=== PATIENT | female | born 1985 | race Hispanic/Latino ===

== ENCOUNTER 2019-12-22 17:12 | Emergency (ER) | payer BC ==
[2019-12-22 17:49] VITALS: BP 136/93; PULSE 74
[2019-12-22] MEDS ORDERED: Sodium Chloride 0.9% 10 ML Syringe FLUSH PRN (18:13)
--- NOTE | 2019-12-22 18:31 | EDM.PDOC ---
<RobertellaMomo urena Jackson - Last Filed: 12/22/19 18:17> ED HPI GENERAL MEDICAL PROBLEM - General Chief Complaint: Abdominal Pain Stated Complaint: ABDOMINAL PAIN Time Seen by Provider: 12/22/19 17:53 Source of Information: Reports: Patient History Limitations: Reports: No Limitations - History of Present Illness INITIAL COMMENTS - FREE TEXT/NARRATIVE: Belinda is a 34 YO female that presents to the ED experiencing left sided abdominal pain. Pain began last night and has been constant. Described as "like when I was giving ." Rated at a 10 out of 10. Nothing makes pain better but does worsen when standing for periods of time. Pain does not radiate to any other location. She has been having diarrhea today with her last normal formed stool being yesterday. Denies fever, chest pain, shortness of breath, nausea, vomiting, eating abnormal food or travel in the last three days, pain or changes in urination, pain during sex, vaginal discharge. She took pepto-bismol with no relief. Onset Date: 12/21/19 Duration: Day(s): (1 day history. ) Location: Reports: Abdomen Quality: Reports: Ache, Dull Improves with: Reports: None Worsens with: Reports: Other (Standing) Associated Symptoms: Reports: Loss of Appetite. Denies: Nausea/Vomiting Abdomen Pain Score (Numeric/FACES): 10 - Related Data Allergies Allergy/AdvReac Type Severity Reaction Status Date / Time No Known Allergies Allergy Verified 12/22/19 17:48 Home Meds: Home Meds . [No Known Home Meds] 12/22/19 [History] Past Medical History - Past Health History Medical/Surgical History: Denies Medical/Surgical History Genitourinary History: Reports: Other (See Below) Other Genitourinary History: Born with 1 kidney. LMP (Approximate): 1 Month - Infectious Disease History Infectious Disease History: Reports: None Social & Family History - Tobacco Use Smoking Status *Q: Never Smoker - Caffeine Use Caffeine Use: Reports: Coffee - Recreational Drug Use Recreational Drug Use: No - Sexual History Sexual History: Reports: Single Partner, Other (See Below) Other Sexual History Comment: IUD placed 3 years ago. Unknown what type. ED ROS GENERAL - Review of Systems Review Of Systems: See Below Constitutional: Reports: Decreased Appetite. Denies: Fever Respiratory: Denies: Shortness of Breath Cardiovascular: Denies: Chest Pain GI/Abdominal: Reports: Abdominal Pain, Diarrhea, Decreased Appetite. Denies: Constipation, Nausea, Vomiting : Reports: Other (Minimal vaginal spotting. ). Denies: Discharge, Dysuria, Flank Pain, Frequency, Hematuria, Urgency ED EXAM, GI/ABD - Physical Exam Exam: See Below Exam Limited By: No Limitations General Appearance: Alert Head: Atraumatic, Normocephalic Respiratory/Chest: No Respiratory Distress, Lungs Clear, Normal Breath Sounds Cardiovascular: Regular Rate, Rhythm, No Gallop, No Murmur, No Rub GI/Abdominal Exam: Normal Bowel Sounds, Soft, No Distention, Tender. No: Di stended, Guarding, Rigid Departure - Departure Disposition: Home, Self-Care 01 Clinical Impression: Abdominal pain Qualifiers: Abdominal location: periumbilical Qualified Code(s): R10.33 - Periumbilical pain - Discharge Information Instructions: Abdominal Pain, Adult, [id number] Referrals: PCP,None [Primary Care Provider] - Forms: ED Department Discharge Additional Instructions: You were evaluated in the ER today regarding your mid to left sided abdominal pain. Laboratory evaluation was done today, along with a CT, and demonstrates no acute abnormalities that would be causing this pain. Due to your reported history of loose stools, you could have a gastroenteritis causing issues. Recommend that you stick to a clear liquid diet for the next 24 to 48 hours, advance to bland as tolerated, please try to get a probiotic in your diet, as this might help form your stools up. You may take 500 mg Tylenol or 600 mg ibuprofen for further pain relief. Do not exceed 4000 mg Tylenol or 3200 mg ibuprofen in a 24-hour time span. If your pain does not seem to be getting much better, recommend you have your symptoms rechecked in a few days. Please return to the ER at any time if your symptoms change or worsen. Sepsis Event Note (ED) - Evaluation Sepsis Screening Result: No Definite Risk <No Lantigua - Last Filed: 12/22/19 22:10> Course - Vital Signs Last Recorded V/S: Last Vital Signs Temp 97 F 12/22/19 17:45 Pulse 74 12/22/19 17:45 Resp 16 12/22/19 17:45 BP 136/93 H 07/08/20 17:45 Pulse Ox 98 12/22/19 17:45 - Orders/Labs/Meds Orders: Active Orders 24 hr Category Date Time Status Peripheral IV Care [RC] . DIRECTED Care 12/22/19 18:13 Ordered UA W/MICROSCOPIC [URIN] Stat Lab 12/22/19 18:13 Ordered Sodium Chloride 0.9% [Saline Flush] Med 12/22/19 18:13 Ordered 10 ml FLUSH ASDIRECTED PRN Peripheral IV Insertion Adult [OM.PC] Stat Oth 12/22/19 18:13 Ordered Medication Orders Sodium Chloride (Saline Flush) 10 ml FLUSH ASDIRECTED PRN PRN Reason: Keep Vein Open Last Admin: 12/22/19 18:18 Dose: 10 ml Documented by: BEATA Labs: Laboratory Tests 12/22/19 12/22/19 12/22/19 Range/Units 18:25 18:25 18:25 WBC 16.08 H (3.98-10.04) K/mm3 RBC 5.00 (3.98-5.22) M/mm3 Hgb 15.2 (11.2-15.7) gm/dl Hct 45.1 H (34.1-44.9) % MCV 90.2 (79.4-94.8) fl MCH 30.4 (25.6-32.2) pg MCHC 33.7 (32.2-35.5) g/dl RDW Std Deviation 40.1 (36.4-46.3) fL Plt Count 301 (182-369) K/mm3 MPV 8.9 L (9.4-12.3) fl Neut % (Auto) 87.6 H (34.0-71.1) % Lymph % (Auto) 5.1 L (19.3-51.7) % [place] % (Auto) 6.6 (4.7-12.5) % Eos % (Auto) 0.4 L (0.7-5.8) Baso % (Auto) 0.1 (0.1-1.2) % Neut # (Auto) 14.08 H (1.56-6.13) K/mm3 Lymph # (Auto) 0.82 L (1.18-3.74) K/mm3 [place] # (Auto) 1.06 H (0.24-0.36) K/mm3 Eos # (Auto) 0.07 (0.04-0.36) K/mm3 Baso # (Auto) 0.02 (0.01-0.08) K/mm3 Manual Slide Review Normal smear Sodium 136 (136-145) mEq/L Potassium 4.1 (3.5-5.1) mEq/L Chloride 102 (98-107) mEq/L Carbon Dioxide 24 (21-32) mEq/L Anion Gap 14.1 (5-15) BUN 14 (7-18) mg/dL Creatinine 0.8 (0.55-1.02) mg/dL Est Cr Clr Drug Dosing 93.63 mL/min Estimated GFR (MDRD) > 60 (>60) mL/min BUN/Creatinine Ratio 17.5 (14-18) Glucose 100 (74-106) mg/dL Calcium 8.9 (8.5-10.1) mg/dL Total Bilirubin 0.6 (0.2-1.0) mg/dL AST 20 (15-37) U/L ALT 34 (14-59) U/L Alkaline Phosphatase 71 (46-116) U/L Total Protein 8.4 H (6.4-8.2) g/dl Albumin 3.9 (3.4-5.0) g/dl Globulin 4.5 gm/dL Albumin/Globulin Ratio 0.9 L (1-2) HCG, Qual Negative (NEGATIVE) Meds: Medications Generic Name Dose Route Start Last Admin Trade Name Freq PRN Reason Stop Dose Admin Sodium Chloride 10 ml 12/22/19 18:13 12/22/19 18:18 Saline Flush FLUSH 10 ml ASDIRECTED PRN Administration Keep Vein Open Discontinued Medications Generic Name Dose Route Start Last Admin Trade Name Freq PRN Reason Stop Dose Admin Diatrizoate Meglum/Diatrizoate Sod 90 ml 12/22/19 20:06 12/22/19 20:46 Gastrografin 37% PO 12/22/19 20:07 90 ml ONETIME ONE Administration Hydromorphone HCl 1 mg 12/22/19 18:36 12/22/19 18:53 Dilaudid IVPUSH 12/22/19 18:37 1 mg ONETIME ONE Administration Sodium Chloride 1,000 mls @ 999 mls/hr 12/22/19 18:36 12/22/19 18:52 Normal Saline IV 12/22/19 19:36 999 mls/hr ONETIME ONE Administration Iopamidol 100 ml 12/22/19 20:06 12/22/19 20:46 Isovue-300 (61%) IVPUSH 12/22/19 20:07 100 ml ONETIME ONE Administration Ondansetron HCl 4 mg 12/22/19 18:36 12/22/19 18:53 Zofran IVPUSH 12/22/19 18:37 4 mg ONETIME ONE Administration Sodium Chloride 10 ml 12/22/19 20:06 12/22/19 20:46 Saline Flush FLUSH 12/22/19 20:07 10 ml ONETIME ONE Administration - Re-Assessments/Exams Free Text/Narrative Re-Assessment/Exam: 12/22/19 18:41 I have read and reviewed the student's HPI and examined the patient and agree with Aretha Saenz PA-student. Have ordered IV to be placed, with IV fluids, 1 mg Dilaudid, 4 mg Zofran, CBC, CMP, urinalysis, and a serum hCG patient states she cannot pee at this time yet. Will await imaging studies after hCG is completed. 12/22/19 19:35 The patient's white blood cell count is elevated at 16.08, with 87% neutrophils. On the auto differential. hCG is negative, metabolic panel is essentially unremarkable. Patient will now have abdomen pelvis CT ordered for further evaluation. Suspect either diverticulitis or appendicitis in nature. 12/22/19 21:[address] demonstrates no acute pathology. 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 IUD is present within the uterus, no inflammation, or other abnormality seen, appendix is seen as it is normal, at this time I do not have a good answer as to what is causing her abdomen pain. She could have a colitis or gastroenteritis in nature. She has been having loose stools. We will likely send her home with general recommendations, and have her return for management if things do not seem to be getting much better. Departure - Departure Time of Disposition: 22:06 Condition: Good - Discharge Information *PRESCRIPTION DRUG MONITORING PROGRAM REVIEWED*: No *COPY OF PRESCRIPTION DRUG MONITORING REPORT IN PATIENT ANTHONY: No Sepsis Event Note (ED) - Focused Exam Vital Signs: Vital Signs Temp Pulse Resp BP Pulse Ox 12/22/19 17:45 97 F 74 16 136/93 H 98 - My Orders Last 24 Hours: My Active Orders 12/22/19 18:13 Peripheral IV Care [RC] . DIRECTED UA W/MICROSCOPIC [URIN] Stat Sodium Chloride 0.9% [Saline Flush] 10 ml FLUSH ASDIRECTED PRN Peripheral IV Insertion Adult [OM.PC] Stat - Assessment/Plan Last 24 Hours: My Active Orders 12/22/19 18:13 Peripheral IV Care [RC] . DIRECTED UA W/MICROSCOPIC [URIN] Stat Sodium Chloride 0.9% [Saline Flush] 10 ml FLUSH ASDIRECTED PRN Peripheral IV Insertion Adult [OM.PC] Stat
[2019-12-22] MEDS ORDERED: HYDROmorphone 1 MG/ML Syringe IVPUSH ONE (18:36)
[2019-12-22] MEDS ORDERED: Sodium Chloride 0.9% 1,000 ML IV ONE (18:36)
[2019-12-22] MEDS ORDERED: Ondansetron 4 MG/2 ML SDV IVPUSH ONE (18:36)
[2019-12-22] MEDS ORDERED: Sodium Chloride 0.9% 10 ML Syringe FLUSH ONE (20:06)
[2019-12-22] MEDS ORDERED: Iopamidol 612 MG/ML 100 ML Bottle IVPUSH ONE (20:06)
[2019-12-22] MEDS ORDERED: Diatrizoate Meglumine/Diatrizoate Sodium 37% 120 ML Bottle PO ONE (20:06)
--- NOTE | 2019-12-22 21:16 | CT ---
CT abdomen and pelvis Technique: Multiple axial sections were obtained from above the dome of the diaphragm inferiorly through the pubic symphysis. Intravenous contrast was utilized. Small amount of oral contrast is noted within the stomach and proximal small bowel. Findings: Visualized lung bases show nothing acute. Liver contains no focal parenchymal abnormality. Gallbladder contains no calcified gallstones. Absent right kidney is seen. Compensatory hypertrophy of the left kidney is noted. Adrenal glands show no nodule. Pancreas is within normal limits. Aorta shows no aneurysm. No retroperitoneal adenopathy is seen. 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 IUD present within the uterus. No pelvic mass or adenopathy is seen. No free fluid or inflammatory change is seen. Appendix is seen which is normal. Delayed images shows contrast excretion from the left kidney into the left ureter and bladder. Bone window settings were reviewed which appear within normal limits for the patient's age. Impression: 1. 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 2. IUD is present within the uterus. 3. Nothing acute is appreciated on CT study of the abdomen and pelvis. Diagnostic code #2 This report was dictated in MDT
== END 2019-12-22 22:18 | disposition home or self-care (01) ==
LOC: JD.ED 17:12
DX: R10.33 Periumbilical pain (principal)
CPT/HCPCS: 36415; 74177; 80053; 84703; 85025; 96361; 96374; 96375; 99284; J1170; J2405; J7030; Q9963; Q9967; 99282

== ENCOUNTER 2020-11-05 17:15 | Emergency (ER) | payer BC ==
[2020-11-05 17:27] VITALS: BP 137/82; PULSE 115
--- NOTE | 2020-11-05 17:29 | EDM.PDOC ---
ED HPI GENERAL MEDICAL PROBLEM - General Chief Complaint: Genitourinary Problem Stated Complaint: FEVER Time Seen by Provider: 11/05/20 17:24 Source of Information: Reports: Patient History Limitations: Reports: No Limitations - History of Present Illness INITIAL COMMENTS - FREE TEXT/NARRATIVE: Patient presents with a fever this morning. No sweats or chills but then started to feel achiness in her muscles in her legs and knees. She then started to note some increasing frequency and a little bit of discomfort with urination. She was born with only 1 kidney and has had urinary tract infections in the past. She currently has an IUD and has noted a little bit of spotting she does not think she is at present. She does describe headaches more frontal temporal area no double vision or blurry vision no runny nose or sore throat. Mild nausea but no vomiting. Been drinking a lot of fluids today. No abnormal vaginal discharge. Does have some mild left flank tenderness. Has one of her kids that got a note from school saying that there was one of the other kids that had a positive Covid. Patient has not had vaccine and denies other Covid symptoms such as loss of taste or smell no coughing shortness of breath or breathing problems no chest pain. Generalized Pain Score (Numeric/FACES): 9 - Related Data Allergies Allergy/AdvReac Type Severity Reaction Status Date / Time No Known Allergies Allergy Verified 11/05/20 17:27 Home Meds: Home Meds Phenazopyridine [Pyridium] 200 mg PO TID #6 tablet 11/05/20 [Rx] nitrofurantoin macrocrystaL [Nitrofurantoin] 100 mg PO BID #14 capsule 11/05/20 [Rx] Past Medical History - Past Health History Medical/Surgical History: Denies Medical/Surgical History Genitourinary History: Reports: Other (See Below) Other Genitourinary History: Born with 1 kidney. - Infectious Disease History Infectious Disease History: Reports: None Social & Family History - Caffeine Use Caffeine Use: Reports: Coffee - Sexual History Sexual History: Reports: Single Partner, Other (See Below) Other Sexual History Comment: IUD placed 3 years ago. Unknown what type. ED ROS GENERAL - Review of Systems Review Of Systems: See Below Constitutional: Reports: Fever. Denies: Chills, Diaphoresis HEENT: Denies: Eye Pain, Rhinitis, Vision Change Respiratory: Denies: Shortness of Breath, Cough Cardiovascular: Denies: Chest Pain GI/Abdominal: Reports: Abdominal Pain, Nausea. Denies: Constipation, Diarrhea, Vomiting : Reports: Dysuria, Flank Pain, Frequency, Irregular Menses, Urgency Musculoskeletal: Reports: Back Pain Neurological: Reports: Headache Psychiatric: Reports: No Symptoms ED EXAM, GI/ABD - Physical Exam Exam: See Below Exam Limited By: No Limitations General Appearance: Alert, WD/WN, Mild Distress Throat/Mouth: Normal Oropharynx Head: Atraumatic Neck: Supple, Non-Tender. No: Lymphadenopathy (L), Lymphadenopathy (R) Respiratory/Chest: No Respiratory Distress, Lungs Clear, Normal Breath Sounds, No Accessory Muscle Use Cardiovascular: Normal Peripheral Pulses, Regular Rate, Rhythm, No Edema GI/Abdominal Exam: Normal Bowel Sounds, Soft, Other (Mild suprapubic discomfort and mild left flank tenderness.) Extremities: No Pedal Edema Neurological: Alert, Oriented Psychiatric: Normal Affect Course - Vital Signs Text/Narrative:: Suspect urinary tract infection rule out pyelonephritis Covid infection no other acute abdominal findings. Have given her Tylenol for headache. Otherwise urine sent Last Recorded V/S: Last Vital Signs Temp 99.4 F 11/05/20 17:24 Pulse 115 H 11/05/20 17:24 Resp 16 11/05/20 17:24 BP 137/82 11/05/20 17:24 Pulse Ox 96 11/05/20 17:24 - Orders/Labs/Meds Orders: Active Orders 24 hr Category Date Time Status CULTURE URINE [MREF] Stat Lab 11/05/20 17:39 Received Labs: Laboratory Tests 11/05/20 11/05/20 11/05/20 Range/Units 17:39 17:39 17:39 Urine Color Yellow (Yellow) Urine Appearance Cloudy H (Clear) Urine pH 6.0 (5.0-8.0) Ur Specific [place] 1.020 (1.005-1.030) Urine Protein 2+ H (Negative) Urine Glucose (UA) Negative (Negative) Urine Ketones 1+ H (Negative) Urine Occult Blood 3+ H (Negative) Urine Nitrite Positive H (Negative) Urine Bilirubin Negative (Negative) Urine Urobilinogen 0.2 (0.2-1.0) Ur Leukocyte Esterase 2+ H (Negative) Urine RBC 10-20 H (0-5) /hpf Urine WBC 50-75 H (0-5) /hpf Ur Squamous Epith Cells 5-10 H (0-5) /hpf Urine Bacteria Moderate H (FEW) /hpf Urine Mucus Few (FEW) /hpf Urine HCG, Qual Negative (NEGATIVE) SARS-CoV-2 RNA ([place]) Negative (NEGATIVE) Urinalysis is positive for protein ketones occult blood nitrites 2+ leukocyte Estrace 10-20 red cells per high-power field 5075 whites positive moderate amount of bacteria hCG is negative Covid negative Meds: Medications Discontinued Medications Generic Name Dose Route Start Last Admin Trade Name Andrew PRN Reason Stop Dose Admin Acetaminophen 650 mg 11/05/20 17:36 11/05/20 17:41 Acetaminophen 325 Mg Tab PO 11/05/20 17:37 650 mg NOW ONE Administration Nitrofurantoin Macrocrystals 100 mg 11/05/20 18:37 Nitrofurantoin Monohydrate/Macrocrystalline 100 Mg Cap PO 11/05/20 18:38 ONETIME ONE - Re-Assessments/Exams Free Text/Narrative Re-Assessment/Exam: 11/05/20 18:34 Positive urinary tract infection we will treat her with Macrodantin we will give her a dose now and a prescription for 7 more days Pyridium, Tylenol for fevers and aches, return precautions given. Departure - Departure Time of Disposition: 18:35 Disposition: Home, Self-Care 01 Condition: Fair Clinical Impression: UTI, Urinary tract infectious disease - Discharge Information Prescriptions: nitrofurantoin macrocrystaL [Nitrofurantoin] 100 mg PO BID #14 capsule Phenazopyridine [Pyridium] 200 mg PO TID #6 tablet Instructions: Urinary Tract Infection, Adult Referrals: PCP,None [Primary Care Provider] - Forms: ED Department Discharge Additional Instructions: Drink plenty of water, Tylenol for fever, Pyridium 200 mg 3 times a day as needed for painful urination may cause your urine to be fluorescent orange. Get the Macrodantin prescription filled tomorrow it will be 1 capsule twice a day for 7 more days. Follow-up with the primary care physician later this week, return to the emergency room with any persistent fever, abdominal pain, vomiting, increasing pain, unable to urinate or worsening symptoms. Sepsis Event Note (ED) - Evaluation Sepsis Screening Result: Possible Sepsis Risk - Focused Exam Vital Signs: Vital Signs Temp Pulse Resp BP Pulse Ox 11/05/20 17:24 99.4 F 115 H 16 137/82 96 - My Orders Last 24 Hours: My Active Orders 11/05/20 17:39 CULTURE URINE [MREF] Stat - Assessment/Plan Last 24 Hours: My Active Orders 11/05/20 17:39 CULTURE URINE [MREF] Stat
[2020-11-05] MEDS ORDERED: Acetaminophen 325 MG Tab PO ONE (17:36)
[2020-11-05] MEDS ORDERED: Nitrofurantoin Monohydrate/Macrocrystalline 100 MG Cap PO ONE (18:37)
== END 2020-11-05 18:52 | disposition home or self-care (01) ==
LOC: JD.ED 17:15
DX: N39.0 Urinary tract infection, site not specified (principal); Z20.822 Contact with and (suspected) exposure to COVID-19
CPT/HCPCS: 81001; 81025; 87086; 87186; 87635; 99283; A9270; U0002

== ENCOUNTER 2021-01-09 19:32 | Emergency (ER) | payer BC ==
[2021-01-09] MEDS ORDERED: Sodium Chloride 0.9% 10 ML Syringe FLUSH PRN (20:34)
[2021-01-09] MEDS ORDERED: diphenhydrAMINE 50 MG/ML SDV IVPUSH PRN (20:37)
[2021-01-09] MEDS ORDERED: Famotidine 20 MG/2 ML SDV IVPUSH PRN (20:37)
[2021-01-09] MEDS ORDERED: methylPREDNISolone Sodium Succinate 125 MG/2 ML SDV IVPUSH PRN (20:37)
[2021-01-09] MEDS ORDERED: EPINEPHrine 1 MG/ML SDV IM PRN (20:37)
[2021-01-09] MEDS ORDERED: Sodium Chloride 0.9% 100 ML ONE (20:40)
[2021-01-09] MEDS ORDERED: Sodium Chloride 0.9% 10 ML Syringe FLUSH SCH (20:45)
--- NOTE | 2021-01-09 20:49 | EDM.PDOC ---
ED HPI GENERAL MEDICAL PROBLEM - General Chief Complaint: Respiratory Problem Stated Complaint: COVID+ WANTS IV MEDS Time Seen by Provider: 01/09/21 20:32 Source of Information: Reports: Patient, RN Notes Reviewed History Limitations: Reports: No Limitations - History of Present Illness INITIAL COMMENTS - FREE TEXT/NARRATIVE: Patient is a 35-year-old female presenting to the emergency department with complaints of cough and so stated chest discomfort with a known diagnosis of COVID-19. Patient reports that she developed the symptoms on Friday of last week. She was tested that day and found to be Covid positive. She spoke with the [facility] today and they advised her to come to the ER for IV fluids. She also has been having dysuria. She would like monoclonal antibody treatment. Denies any fever or chills. She does not feel short of breath. She has had no nausea, vomiting, or diarrhea. 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 - Infectious Disease History Infectious Disease History: Reports: None, Novel Coronavirus Social & Family History - Tobacco Use Tobacco Use Status *Q: Never Tobacco User - Caffeine Use Caffeine Use: Reports: Coffee, Energy Drinks, Soda, Tea - Recreational Drug Use Recreational Drug Use: No - Sexual History Sexual History: Reports: Single Partner, Other (See Below) Other Sexual History Comment: IUD placed 3 years ago. Unknown what type. ED ROS GENERAL - Review of Systems Review Of Systems: See Below Constitutional: Reports: Fatigue. Denies: Fever, Chills HEENT: Reports: No Symptoms Respiratory: Reports: Pleuritic Chest Pain, Cough. Denies: Shortness of Breath Cardiovascular: Reports: No Symptoms. Denies: Dyspnea on Exertion, Lightheadedness, Palpitations Endocrine: Reports: No Symptoms GI/Abdominal: Reports: No Symptoms. Denies: Diarrhea, Nausea, Vomiting : Reports: Dysuria. Denies: Flank Pain Musculoskeletal: Reports: No Symptoms Skin: Reports: No Symptoms Neurological: Reports: No Symptoms Psychiatric: Reports: No Symptoms Hematologic/Lymphatic: Reports: No Symptoms Immunologic: Reports: No Symptoms ED EXAM, GENERAL - Physical Exam Exam: See Below Exam Limited By: No Limitations General Appearance: Alert, WD/WN, No Apparent Distress Respiratory/Chest: No Respiratory Distress, Lungs Clear, Normal Breath Sounds, No Accessory Muscle Use, Chest Non-Tender Cardiovascular: Normal Peripheral Pulses, Regular Rate, Rhythm, No Edema, No Gallop, No JVD, No Murmur, No Rub GI/Abdominal: Normal Bowel Sounds, Soft, Non-Tender, No Organomegaly, No Distention, No Abnormal Bruit, No Mass Neurological: Alert, Oriented, CN II-XII Intact, Normal Cognition, Normal Gait, Normal Reflexes, No Motor/Sensory Deficits Psychiatric: Normal Affect, Normal Mood Skin Exam: Warm, Dry, Intact, Normal Color, No Rash Course - Vital Signs Last Recorded V/S: Last Vital Signs Temp 100.2 F 01/09/21 20:23 Pulse 80 01/09/21 21:19 Resp 18 01/09/21 21:19 BP 116/76 01/09/21 21:19 Pulse Ox 95 01/09/21 21:19 - Orders/Labs/Meds Labs: Laboratory Tests 01/09/21 01/09/21 01/09/21 Range/Units 20:55 20:55 22:28 WBC 7.13 (3.98-10.04) K/mm3 RBC 4.67 (3.98-5.22) M/mm3 Hgb 14.0 (11.2-15.7) gm/dl Hct 42.0 (34.1-44.9) % MCV 89.9 (79.4-94.8) fl MCH 30.0 (25.6-32.2) pg MCHC 33.3 (32.2-35.5) g/dl RDW Std Deviation 40.8 (36.4-46.3) fL Plt Count 212 D (182-369) K/mm3 MPV 9.2 L (9.4-12.3) fl Neut % (Auto) 78.2 H (34.0-71.1) % Lymph % (Auto) 16.8 L (19.3-51.7) % Larue % (Auto) 4.5 L (4.7-12.5) % Eos % (Auto) 0.3 L (0.7-5.8) Baso % (Auto) 0.1 (0.1-1.2) % Neut # (Auto) 5.57 (1.56-6.13) K/mm3 Lymph # (Auto) 1.20 (1.18-3.74) K/mm3 Larue # (Auto) 0.32 (0.24-0.36) K/mm3 Eos # (Auto) 0.02 L (0.04-0.36) K/mm3 Baso # (Auto) 0.01 (0.01-0.08) K/mm3 Manual Slide Review Sodium 139 (136-145) mEq/L Potassium 3.8 (3.5-5.1) mEq/L Chloride 102 (98-107) mEq/L Carbon Dioxide 28 (21-32) mEq/L Anion Gap 12.8 (5-15) BUN 11 (7-18) mg/dL Creatinine 1.0 (0.55-1.02) mg/dL Est Cr Clr Drug Dosing 74.21 mL/min Estimated GFR (MDRD) > 60 (>60) mL/min BUN/Creatinine Ratio 11.0 L (14-18) Glucose 112 H (70-99) mg/dL Calcium 8.3 L (8.5-10.1) mg/dL Total Bilirubin 0.4 (0.2-1.0) mg/dL AST 54 H (15-37) U/L ALT 53 (14-59) U/L Alkaline Phosphatase 79 (46-116) U/L Total Protein 7.9 (6.4-8.2) g/dl Albumin 3.4 (3.4-5.0) g/dl Globulin 4.5 gm/dL Albumin/Globulin Ratio 0.8 L (1-2) Urine Color Yellow (Yellow) Urine Appearance Clear (Clear) Urine pH 6.0 (5.0-8.0) Ur Specific [place] > or = 1.030 (1.005-1.030) Urine Protein 3+ H (Negative) Urine Glucose (UA) Negative (Negative) Urine Ketones Negative (Negative) Urine Occult Blood 3+ H (Negative) Urine Nitrite Negative (Negative) Urine Bilirubin 1+ H (Negative) Urine Urobilinogen 4.0 H (0.2-1.0) Ur Leukocyte Esterase 1+ H (Negative) Urine RBC 10-20 H (0-5) /hpf Urine WBC 30-40 H (0-5) /hpf Ur Squamous Epith Cells 5-10 H (0-5) /hpf Urine Bacteria Few (FEW) /hpf Urine Mucus Few (FEW) /hpf Meds: Medications Discontinued Medications Generic Name Dose Route Start Last Admin Trade Name Freq PRN Reason Stop Dose Admin Cefdinir 300 mg 01/09/21 23:03 01/09/21 23:13 Cefdinir 300 Mg Cap PO 01/09/21 23:04 300 mg ONETIME ONE Administration Diphenhydramine HCl 50 mg 01/09/21 20:37 Diphenhydramine 50 Mg/Ml Sdv IVPUSH ONETIME PRN hypersensitivity reaction Epinephrine HCl 0.3 mg 01/09/21 20:37 Epinephrine 1 Mg/Ml Sdv IM ONETIME PRN hypersensitivity reaction Famotidine 20 mg 01/09/21 20:37 Famotidine 20 Mg/2 Ml Sdv IVPUSH ONETIME PRN hypersensitivity reaction CASIRIVIMAB/IMDEVIMAB 10 ml/ 110 mls @ 220 mls/hr 01/09/21 20:37 01/09/21 21:12 Sodium Chloride IV 01/09/21 21:06 220 mls/hr ONETIME ONE Administration Sodium Chloride Confirm 01/09/21 20:40 Normal Saline Administered 01/09/21 20:41 Dose 100 mls @ as directed .ROUTE .STK-MED ONE Methylprednisolone Sodium Succinate 125 mg 01/09/21 20:37 Methylprednisolone Sodium Succinate 125 Mg/2 Ml Sdv IVPUSH ONETIME PRN hypersensitivity reaction Sodium Chloride 10 ml 01/09/21 20:34 Sodium Chloride 0.9% 10 Ml Syringe FLUSH ASDIRECTED PRN Keep Vein Open Sodium Chloride 30 ml 01/09/21 20:45 Sodium Chloride 0.9% 10 Ml Syringe FLUSH ASDIRECTED CHRISTINE - Re-Assessments/Exams Free Text/Narrative Re-Assessment/Exam: Patient is a 35-year-old female presenting to the emergency department with complaints of cough and associated chest discomfort with a known diagnosis of COVID-19. She was diagnosed approximately 5 days ago. She spoke to the [facility] and they advised her to come to ER for IV fluids. I discussed with her that unless she is dehydrated, IV fluids are not recommended with COVID-19. She is requesting treatment monoclonal antibodies. States her got them last evening. Discussed the risks and benefit and she has agreed to proceed with this. Have ordered standard blood work, chest x-ray, and urinalysis. I spoke with patient to provide information about bamlanivimab treatment I offered them the ``Patient and Caregiver EUA Bamlanivimad Fact Sheet to read and review I stated the drug has been approved by an emergency use authorization (EUA) pro cess and has not fully been FDA reviewed or approved The patient meets the EUA requirements I discussed there are other potential treatment options that are currently not FDA approved to treat COVID-19. Offered opportunity to ask questions and all questions were answered Patient voiced understanding and agreed to proceed with treatment. 01/09/21 22:28 Patient tolerated her monoclonal antibody infusion well. She has began her waiting. She will be finished at 1115 and ready to go home. Urine is being sent down now. 01/09/21 22:39 Hematology is grossly unremarkable. Chest x-ray reviewed by myself and Dr. Cruz shows no acute abnormalities. 01/09/21 23:05 Urinalysis is consistent with urinary tract infection. Urine has been sent for culture. Patient will be started on cefdinir for treatment of urinary tract infection. She has tolerated the monoclonal antibody infusion well. Waiting period is over at 2315. She will be discharged home at that time. Departure - Departure Time of Disposition: 23:15 Disposition: Home, Self-Care 01 Condition: Good Clinical Impression: UTI, Urinary tract infectious disease, COVID-19 - Discharge Information *PRESCRIPTION DRUG MONITORING PROGRAM REVIEWED*: No *COPY OF PRESCRIPTION DRUG MONITORING REPORT IN PATIENT ANTHONY: No Prescriptions: Cefdinir 300 mg PO BID 7 Days #13 capsule Instructions: COVID-19 Referrals: PCP,None [Primary Care Provider] - Forms: ED Department Discharge Additional Instructions: You were seen in the emergency department today for evaluation of cough and painful urination with a known diagnosis of COVID-19. Work-up included blood work, chest x-ray, and urinalysis. Results of work-up did show that you have a urinary tract infection. You received a monoclonal antibody infusion. Recommend that you go home and rest. Maintain isolation as directed by the [facility]. Return to ER for new or worsening symptoms. Sepsis Event Note (ED) - Evaluation Sepsis Screening Result: No Definite Risk
[2021-01-09 21:21] VITALS: BP 116/76; PULSE 80
[2021-01-09] MEDS ORDERED: Cefdinir 300 MG Cap PO ONE (23:03)
--- NOTE | 2021-01-10 08:36 | CR ---
Chest: Portable view of the chest was obtained. Comparison: Prior chest x-ray of 06/25/16. Heart size and mediastinum are within normal limits for portable technique. Patchy areas of increased density are seen within both sides of the chest most likely representing mild areas of COVID pneumonia. Bony structures are unremarkable. Impression: 1. Mild areas of presumed COVID pneumonia. Diagnostic code #3
== END 2021-01-09 23:18 | disposition home or self-care (01) ==
LOC: JD.ED 19:32
DX: U07.1 COVID-19 (principal); N39.0 Urinary tract infection, site not specified
CPT/HCPCS: 36415; 71045; 71045-26; 80053; 81001; 85025; 87086; 99284; 99285-25; A9270-GY; M0243; Q0243